=== PATIENT | female | born 1980 | race Caucasian/White ===

== ENCOUNTER 2017-09-27 18:48 | Emergency (ER) | payer MEDICAID ==
[2017-09-27 18:48] VITALS: BMI 30.2
[2017-09-27 18:55] VITALS: TEMP 97.9
[2017-09-27 19:38] VITALS: RESP 20
--- NOTE | 2017-09-27 19:45 | C.PDOC ---
History Of Present Illness 37 year old female presents to the ED for evaluation of a mild viral syndrome and dizziness which began 3 days ago. Patient was evaluated by her PMD, Dr. Hurd, who prescribed her Fioricet and Trazodone. Patient has been taking Trazodone at night. She took one tablet of Fioricet at 1300 today, which made her feel sluggish and as if her head was "heavy." Patient has had a history of vertigo since 2010 and has not been prescribed Meclizine. Patient denies fever, chills, headache, vision change. Time Seen by Provider: 09/27/17 19:35 Chief Complaint (Nursing): Dizziness/Lightheaded History Per: Patient History/Exam Limitations: no limitations Onset/Duration Of Symptoms: Days (3) Current Symptoms Are (Timing): Still Present Associated Symptoms Preceding Syncopal Episode: No Predromal Symptoms (Sudden Onset) Additional History Per: Patient Past Medical History Reviewed: Historical Data, Nursing Documentation, Vital Signs Vital Signs: Last Vital Signs Temp 97.9 F 09/27/17 18:54 Pulse 78 09/27/17 20:51 Resp 20 09/27/17 20:51 BP 122/78 09/27/17 20:51 Pulse Ox 98 09/27/17 22:24 - Medical History PMH: No Chronic Diseases Surgical History: No Surg Hx - [facility] Procedures REPAIR OB LACERATION NEC (05/17/13) Family History: States: Unknown Family Hx - Social History Hx Alcohol Use: Yes (1-2 glasses wine /day) Hx Substance Use: No - Immunization History Hx Tetanus Toxoid Vaccination: No Hx Influenza Vaccination: No Hx Pneumococcal Vaccination: No Review Of Systems Constitutional: Negative for: Fever, Chills Eyes: Negative for: Vision Change Neurological: Positive for: Dizziness. Negative for: Headache Physical Exam - Physical Exam Appears: Non-toxic, No Acute Distress Skin: Normal Color, Warm, Dry Head: Atraumatic, Normacephalic Eye(s): bilateral: Normal Inspection Ear(s): Bilateral: Normal Oral Mucosa: Moist Neck: Normal ROM, Supple Chest: Symmetrical, No Deformity, No Tenderness Cardiovascular: Rhythm Regular, No Murmur Respiratory: Normal Breath Sounds, No Rales, No Rhonchi, No Wheezing Extremity: Normal ROM, Capillary Refill (less than 2 seconds ) Neurological/Psych: Oriented x3, Normal Speech, Normal Cognition Gait: Steady ED Course And Treatment - Laboratory Results Lab Interpretation: Normal (ua neg,) Urine POC: Negative O2 Sat by Pulse Oximetry: 98 (on RA) Pulse Ox Interpretation: Normal Progress Note: UA ordered and reviewed. Meclizine PO administered. Medical Decision Making Medical Decision Making: typical BPV, h/o same since 2010 ? why Fioricet and Trazadone prescribed... Disposition Doctor Will See Patient In The: Office Counseled Patient/Family Regarding: Studies Performed, Diagnosis - Disposition Referrals: Jared Hurd MD [Medical Doctor] - Disposition: HOME/ ROUTINE Disposition Time: 20:29 Condition: GOOD Additional Instructions: peng aleks tableta de Antivert/Meclizine cada 8 horas babak necessario para los mareos de Vertigo Benign Positional Vertigo Sigue con jimenez medico o' con [facility] (gratis) Prescriptions: Meclizine [Meclizine*] 25 mg PO Q6 PRN #30 tab PRN Reason: vertigo Instructions: Vertigo (a Type of Dizziness) Forms: [employer] (Hungarian) Print Language: LUXEMBOURGER - Clinical Impression Clinical Impression: Dizziness, Anxiety - Scribe Statement The provider has reviewed the documentation as recorded by the Scribe (Cara Fung) Provider Attestation: All medical record entries made by the Scribe were at my direction and personally dictated by me. I have reviewed the chart and agree that the record accurately reflects my personal performance of the history, physical exam, medical decision making, and the department course for this patient. I have also personally directed, reviewed, and agree with the discharge instructions and disposition.
[2017-09-27 20:13] LABS: HCG,QUALITATIVE URINE NEGATIVE (NEGATIVE)
[2017-09-27 20:16] LABS: SQUAMOUS EPITHIAL 2 /hpf (0-5); URINE BILIRUBIN NEGATIVE (NEGATIVE); URINE BLOOD NEGATIVE (NEGATIVE); URINE CLARITY Hazy (Clear); URINE COLOR Yellow (YELLOW); URINE GLUCOSE (UA) NORMAL (Normal); URINE PROTEIN NEGATIVE (NEGATIVE)
[2017-09-27 20:17] LABS: URINE BACTERIA RARE (<OCC)
[2017-09-27 20:18] LABS: URINE LEUKOCYTE ESTERASE NEGATIVE Leu/uL (Negative)
[2017-09-27 20:54] VITALS: BP 122/78; PULSE 78
[2017-09-27 22:24] VITALS: O2SAT 98
== END 2017-09-27 20:51 | disposition home or self-care (01) ==
LOC: C.ER 18:48
DX: R42 Dizziness and giddiness (principal); F41.9 Anxiety disorder, unspecified

== ENCOUNTER 2018-10-17 12:53 | Emergency (ER) | payer MEDICAID ==
[2018-10-17 12:54] VITALS: BMI 30.2
[2018-10-17 13:07] VITALS: RESP 18
--- NOTE | 2018-10-17 13:20 | C.PDOC ---
History Of Present Illness 38 y/o female pt presents to the ER c/o sprained her right foot and right ankle when walking down steps today. Pt is currently in a wheelchair. Pt denies weakness, numbness, tingling sensation, LOC and head injury Time Seen by Provider: 10/17/18 13:17 Chief Complaint (Nursing): Lower Extremity Problem/Injury History Per: Patient History/Exam Limitations: no limitations Onset/Duration Of Symptoms: Hrs Current Symptoms Are (Timing): Still Present - Ankle/Foot Description Of Injury: Fell Past Medical History Reviewed: Historical Data, Nursing Documentation, Vital Signs Vital Signs: Last Vital Signs Temp 98.3 F 10/17/18 13:00 Pulse 73 10/17/18 13:00 Resp 18 10/17/18 13:00 BP 99/70 L 10/17/18 13:00 Pulse Ox 98 10/17/18 13:00 - [facility] Procedures REPAIR OB LACERATION NEC (05/17/13) Family History: States: Unknown Family Hx - Social History Hx Alcohol Use: Yes (1-2 glasses wine /day) Hx Substance Use: No - Immunization History Hx Tetanus Toxoid Vaccination: No Hx Influenza Vaccination: No Hx Pneumococcal Vaccination: No Review Of Systems Except As Marked, All Systems Reviewed And Found Negative. Constitutional: Negative for: Other (LOC; head injury ) Musculoskeletal: Positive for: Foot Pain (right ), Other (right ankle pain ) Neurological: Negative for: Weakness, Numbness, Other (tingling sensation ) Physical Exam - Physical Exam Appears: Non-toxic, No Acute Distress Skin: Warm, Dry Head: Atraumatic, Normacephalic, No Tenderness, No Swelling, No Abrasion, No Laceration Eye(s): bilateral: Normal Inspection, PERRL, EOMI Cardiovascular: Rhythm Regular Respiratory: Normal Breath Sounds Back: No CVA Tenderness, No Vertebral Tenderness, No Paraspinal Tenderness Extremity: Normal ROM (x4), Tenderness (right foot and right ankle ), No Calf Tenderness, Capillary Refill (<2 sec), No Deformity, No Swelling Pulses: Right Dorsalis Pedis: Normal Neurological/Psych: Oriented x3, Normal Speech, Normal Cognition, Normal Motor, Normal Sensation ED Course And Treatment O2 Sat by Pulse Oximetry: 98 (RA) Pulse Ox Interpretation: Normal - Other Rad right ankle X-Ray: Read By Radiologist Interpretation: Accession No. : [id number]. Patient Name / ID : MICHELLE GALVAN / [id number]. Exam Date : 10/17/2018 13:24:44 ( Approved ). Study Comment : Sex / Age : F / 38Y. Creator : Alonzo Rollins MD. Dictator : Alonzo Rollins MD. Swimming Pool Attendant : Fondant Machine Operator : Alonzo Rollins MD. Approver2 : Report Date : 10/17/2018 16:20:33. My Comment : * . Date of service: 10/17/2018. PROCEDURE: Right Ankle Radiographs. HISTORY: fall. COMPARISON: None available. TECHNIQUE: 3 views obtained. FINDINGS: BONES: Normal. No fracture. JOINTS: Normal. No osteoarthritis. Ankle mortise maintained. Talar dome intact. SOFT TISSUES: Normal. OTHER FINDINGS: None. IMPRESSION: Normal right ankle radiographs. right foot X-Ray: Read By Radiologist Interpretation: Accession No. : [id number]. Patient Name / ID : MICHELLE GALVAN / [id number]. Exam Date : 10/17/2018 13:25:00 ( Approved ). Study Comment : Sex / Age : F / 38Y. Creator : Alonzo Rollins MD. Dictator : Alonzo Rollins MD. Swimming Pool Attendant : Fondant Machine Operator : Alonzo Rollins MD. Approver2 : Report Date : 10/17/2018 16:17:01. My Comment : . Date of service: 10/17/2018. PROCEDURE: Right Foot Radiographs. HISTORY: fall. COMPARISON: None. TECHNIQUE: 3 views obtained. FINDINGS: BONES: Normal. No fracture. JOINTS: Normal. SOFT TISSUES: Normal. OTHER FINDINGS: None. IMPRESSION: Normal right foot radiographs. Progress Note: Plans: -- right ankle XR. -- right foot XR. -- pt right ankle and right foot was splinted and pt will be d/c with crutches Disposition - Disposition Referrals: Arnol Poole III, MD [Staff Provider] - Jeannie Gray DPM [Staff Provider] - Disposition: HOME/ ROUTINE Disposition Time: 14:34 Condition: STABLE Additional Instructions: Follow up with Ems Director or Orthopedist within 2-3 days. Return to ED if feel worse. Prescriptions: Ibuprofen [Motrin Tab] 600 mg PO Q8 #30 tab Instructions: Foot Sprain (DC) Forms: [employer] (German), [employer] (Kyrgyz), Work Excuse Print Language: WOLOF - Clinical Impression Clinical Impression: Sprain of foot, right - PA / EARLY CHILDHOOD EDUCATOR AIDE / Resident Statement MD/ has reviewed & agrees with the documentation as recorded. - Scribe Statement The provider has reviewed the documentation as recorded by the Greer Pino Do All medical record entries made by the Scribe were at my direction and personally dictated by me. I have reviewed the chart and agree that the record accurately reflects my personal performance of the history, physical exam, medical decision making, and the department course for this patient. I have also personally directed, reviewed, and agree with the discharge instructions and disposition.
[2018-10-17 14:35] VITALS: BP 108/68; PULSE 76; TEMP 98.5
[2018-10-17 14:36] VITALS: O2SAT 98
--- NOTE | 2018-10-17 16:20 | RAD ---
Date of service: 10/17/2018 PROCEDURE: Right Foot Radiographs. HISTORY: fall COMPARISON: None. TECHNIQUE: 3 views obtained. FINDINGS: BONES: Normal. No fracture. JOINTS: Normal. SOFT TISSUES: Normal. OTHER FINDINGS: None. IMPRESSION: Normal right foot radiographs.
--- NOTE | 2018-10-17 16:24 | RAD ---
Date of service: 10/17/2018 PROCEDURE: Right Ankle Radiographs. HISTORY: fall COMPARISON: None available. TECHNIQUE: 3 views obtained. FINDINGS: BONES: Normal. No fracture. JOINTS: Normal. No osteoarthritis. Ankle mortise maintained. Talar dome intact SOFT TISSUES: Normal. OTHER FINDINGS: None. IMPRESSION: Normal right ankle radiographs.
== END 2018-10-17 14:46 | disposition home or self-care (01) ==
LOC: C.ER 12:53
DX: S93.601A Unspecified sprain of right foot, initial encounter (principal); X58.XXXA Exposure to other specified factors, initial encounter